=== PATIENT | male | born 1950 | race Caucasian/White ===

== ENCOUNTER 2021-06-21 18:00 | Emergency (ER) | payer MEDICARE | END 2021-06-21 20:45 | disposition home or self-care (01) | LOC: ER1 18:00 | DX: S13.9XXA Sprain of joints and ligaments of unspecified parts of neck, initial encounter (principal); S00.81XA Abrasion of other part of head, initial encounter; I10 Essential (primary) hypertension; E11.9 Type 2 diabetes mellitus without complications; Z86.73 Personal history of transient ischemic attack (TIA), and cerebral infarction without residual deficits; W01.10XA Fall on same level from slipping, tripping and stumbling with subsequent striking against unspecified object, initial encounter | CPT/HCPCS: 70450; 72125; 99283 ==

== ENCOUNTER 2022-02-10 21:13 | Emergency (ER) | payer OTHER | END 2022-02-10 22:55 | disposition home or self-care (01) | LOC: ER1 21:13 | DX: Z04.1 Encounter for examination and observation following transport accident (principal); E78.5 Hyperlipidemia, unspecified; Z86.73 Personal history of transient ischemic attack (TIA), and cerebral infarction without residual deficits | CPT/HCPCS: 99283 ==

== ENCOUNTER 2022-03-27 12:29 | Inpatient (IN) | payer MEDICARE ==
[~2022-03-27] VITALS: Ht 180.3 cm; Wt 106.6 kg
[2022-03-27 13:23] LABS: HEMOGLOBIN 13.1 gm/dl (14.0-17.5); RED BLOOD COUNT 4.74 M/UL (4.20-5.50); WHITE BLOOD COUNT 21.3 K/UL (4.5-11.0)
[2022-03-27 13:48] LABS: BUN/CREATININE RATIO 21 (0-10)
[2022-03-27] MEDS ORDERED: OMEPRAZOLE40 MG PO (18:46)
[2022-03-27] MEDS ORDERED: SIMVASTATIN10 MG PO (18:47)
[2022-03-27] MEDS ORDERED: AMLODIPINE BESYL5 MG PO (18:47)
[2022-03-27] MEDS ORDERED: CLONIDINE HCL0.1 MG PO (18:48)
[2022-03-27] MEDS ORDERED: CARVEDILOL25 MG PO (18:48)
[2022-03-27] MEDS ORDERED: METFORMIN HCL1000 MG PO (18:49)
[2022-03-27] MEDS ORDERED: LISINOPRIL-HCT1 EAC2 PO (18:50)
[2022-03-27] MEDS ORDERED: HYDRALAZINE HC100 MG PO (18:51)
[2022-03-27] MEDS ORDERED: WARFARIN SODIUM4 MG PO (18:51)
[2022-03-28 06:26] LABS: RED BLOOD COUNT 4.32 M/UL (4.20-5.50)
[2022-03-28 06:51] LABS: BUN/CREATININE RATIO 27 (0-10)
[2022-03-28 21:04] LABS: CANDIDA ALBICANS Not Detected (Negative); CANDIDA KRUSEI Not Detected (Negative); CANDIDA TROPICALIS Not Detected (Negative); ESCHERICHIA COLI Not Detected (Negative); HAEMOPHILUS INFLUENZAE Not Detected (Negative); KLEBSIELLA OXYTOCA Not Detected (Negative); KLEBSIELLA PNEUMONIAE Not Detected (Negative); KPC-CARBAPENEM-RESISTANCE GENE Not Detected (Negative); PROTEUS Not Detected (Negative); PSEUDOMONAS AERUGINOSA Not Detected (Negative); SERRATIA MARCESANS Not Detected (Negative); STAPHYLOCOCCUS AUREUS Not Detected (Negative); STREP AGALACTIAE (GROUP B) Not Detected (Negative); STREP PYOGENES (GROUP A) Not Detected (Negative); STREPTOCOCCUS Not Detected (Negative); vanA/B (VANCOMYCIN RESIST GENE Not Detected (Negative)
[2022-03-28 22:23] LABS: STAPHYLOCOCCUS DETECTED (Negative)
[2022-03-29 02:57] LABS: HEMOGLOBIN 11.7 gm/dl (14.0-17.5); RED BLOOD COUNT 4.21 M/UL (4.20-5.50)
[2022-03-29 03:00] LABS: WHITE BLOOD COUNT 11.5 K/UL (4.5-11.0)
[2022-03-29 03:26] LABS: BUN/CREATININE RATIO 22 (0-10)
[2022-03-29] MEDS ORDERED: CEFDINIR300 MG PO (11:16)
== END 2022-03-29 12:18 | disposition home or self-care (01) | DRG 872 ==
LOC: ER1 12:29 → CDU 18:13 → MED SURG 4 21:54
PROVIDERS: Emergency Medicine; Physician Assistant; ADMIT Internal Medicine
DX: A41.9 Sepsis, unspecified organism (principal); N39.0 Urinary tract infection, site not specified; E87.6 Hypokalemia; I10 Essential (primary) hypertension; E78.5 Hyperlipidemia, unspecified; Z20.822 Contact with and (suspected) exposure to COVID-19; E66.01 Morbid (severe) obesity due to excess calories; E11.9 Type 2 diabetes mellitus without complications; Z86.73 Personal history of transient ischemic attack (TIA), and cerebral infarction without residual deficits; Z79.01 Long term (current) use of anticoagulants; Z98.890 Other specified postprocedural states; Z85.828 Personal history of other malignant neoplasm of skin; Z82.49 Family history of ischemic heart disease and other diseases of the circulatory system; Z79.84 Long term (current) use of oral hypoglycemic drugs; Z68.32 Body mass index [BMI] 32.0-32.9, adult
CPT/HCPCS: 36415; 71045; 80053; 81001; 82550; 82553; 82962; 83605; 83735; 84100; 84484; 85025; 85610; 85730; 87040; 87077; 87086; 87150; 87186; 93005; 96361; 96374; 97116; 97116-GP-CQ; 97161; 99285; J0696; J2543; J3370; J7050; J7070; U0002